=== PATIENT | female | born 1950 | race Caucasian/White ===

== ENCOUNTER → 2017-11-16 | Outpatient (CLI) | payer BC | END | disposition home or self-care (01) | LOC: MAMMO 08:20 | DX: Z12.31 Encounter for screening mammogram for malignant neoplasm of breast (principal) | CPT/HCPCS: G0202 ==

== ENCOUNTER 2018-05-27 18:05 | Inpatient (IN) | payer MEDICARE, BC ==
[2018-05-27] MEDS ORDERED: 0.9 % SODIUM CHLORIDE 10 ML DISP.SYRIN. IV (20:00)
[2018-05-27 21:03] LABS: BASE EXCESS ABG 3 mmol/L (-3-3); HCO3 ABG 27 mmol/L (21-28); PCO2 ABG 38 mmHg (35-46); PH ABG 7.46 (7.35-7.45); PO2 ABG 74 mmHg (65-108); SAT O2 ABG 95 % (92-99)
[2018-05-27 21:11] LABS: ADD MAN DIFF? NO
[2018-05-27 21:21] LABS: BASO % 1 % (0-3); EOS % 1 % (0-3); HEMATOCRIT 44.8 % (36.0-47.0); HEMOGLOBIN 14.9 g/dL (12.0-15.5); LYMPH # 1.7 x10^3/uL (1.0-4.8); LYMPH % 33 % (24-48); MEAN CORPUSCULAR HEMOGLOBIN 30 pg (25-35); MEAN CORPUSCULAR HGB CONC 33 g/dL (31-37); MEAN CORPUSCULAR VOLUME 89 fL (79-100); MONO # 0.3 x10^3/uL (0.0-1.1); MONO % 6 % (0-9); NEUT # 3.1 x10^3uL (1.8-7.7); NEUT % 60 % (31-73); PLATELET COUNT 194 x10^3/uL (140-400); RED BLOOD COUNT 5.04 x10^6/uL (3.50-5.40); RED CELL DISTRIBUTION WIDTH 13.4 % (11.5-14.5); WHITE BLOOD COUNT 5.2 x10^3/uL (4.0-11.0)
[2018-05-27] MEDS: ENOXAPARIN 40 MG/0.4 ML SYRINGE. SQ (21:33)
[2018-05-27] MEDS: methylPREDNISolone SOD SUCC PF 125 MG/2 ML VIAL. IV (21:33)
[2018-05-27] MEDS: PROMETH/CODEINE 6.25/10MG 5 ML SYRUP. PO (21:34)
[2018-05-27] MEDS: METOPROLOL TART IMMED RELEASE 50 MG TABLET. PO (21:34)
[2018-05-27] MEDS: AZITHROMYCIN 500 MG in IV NORMAL SALINE 250ML 250 ML IV (21:35)
[2018-05-27 21:38] LABS: TROPONINI < 0.017 ng/mL (0.000-0.055)
[2018-05-27 21:39] LABS: LACTIC ACID 1.7 mmol/L (0.4-2.0)
[2018-05-27 21:42] LABS: NT-PRO BNP 1058 pg/mL (0-124)
[2018-05-27 21:45] LABS: ALBUMIN 4.3 g/dL (3.4-5.0); ALBUMIN/GLOBULIN RATIO 1.1 (1.0-1.7); ALK PHOS 90 U/L (46-116); ALT (SGPT) 23 U/L (14-59); ANION GAP 6 (6-14); AST (SGOT) 17 U/L (15-37); BLOOD UREA NITROGEN 17 mg/dL (7-20); BUN/CREATININE RATIO 17 (6-20); CALCIUM 9.9 mg/dL (8.5-10.1); CARBON DIOXIDE 33 mmol/L (21-32); CHLORIDE 104 mmol/L (98-107); GFR 55.3; GLUCOSE 110 mg/dL (70-99); MAGNESIUM 2.1 mg/dL (1.8-2.4); SODIUM 143 mmol/L (136-145); TOTAL BILIRUBIN 0.4 mg/dL (0.2-1.0); TOTAL PROTEIN 8.3 g/dL (6.4-8.2)
[2018-05-27 21:49] LABS: POTASSIUM 2.9 mmol/L (3.5-5.1)
[2018-05-27 22:23] LABS: FIO2 ABG 21%
[2018-05-27] MEDS: POTASSIUM CHLORIDE 20 MEQ TABLET.ER. PO ×2 (22:42→23:56)
[2018-05-27] MEDS: FUROSEMIDE 20 MG/2 ML VIAL. IVP (22:43)
[2018-05-28] MEDS: methylPREDNISolone SOD SUCC PF 125 MG/2 ML VIAL. IV ×3 (05:07→21:58)
[2018-05-28 05:25] LABS: BASO % 0 % (0-3); EOS % 0 % (0-3); HEMATOCRIT 43.1 % (36.0-47.0); HEMOGLOBIN 14.5 g/dL (12.0-15.5); LYMPH # 0.6 x10^3/uL (1.0-4.8); LYMPH % 11 % (24-48); MEAN CORPUSCULAR HEMOGLOBIN 30 pg (25-35); MEAN CORPUSCULAR HGB CONC 34 g/dL (31-37); MEAN CORPUSCULAR VOLUME 88 fL (79-100); MONO % 1 % (0-9); NEUT # 4.7 x10^3uL (1.8-7.7); NEUT % 87 % (31-73); PLATELET COUNT 200 x10^3/uL (140-400); RED CELL DISTRIBUTION WIDTH 12.9 % (11.5-14.5); WHITE BLOOD COUNT 5.4 x10^3/uL (4.0-11.0)
[2018-05-28 05:45] LABS: ANION GAP 8 (6-14); BLOOD UREA NITROGEN 14 mg/dL (7-20); CALCIUM 9.6 mg/dL (8.5-10.1); CARBON DIOXIDE 32 mmol/L (21-32); CHLORIDE 105 mmol/L (98-107); CREATININE 0.9 mg/dL (0.6-1.0); GFR 62.5; GLUCOSE 150 mg/dL (70-99); POTASSIUM 4.2 mmol/L (3.5-5.1); SODIUM 145 mmol/L (136-145)
[2018-05-28 05:49] LABS: TROPONINI < 0.017 ng/mL (0.000-0.055)
[2018-05-28 07:05] LABS: ADD MAN DIFF? YES
[2018-05-28] MEDS: ALBUTEROL SULFATE 2.5 MG/3 ML NEBU. NEB ×4 (07:10→19:52)
[2018-05-28] MEDS: PROMETH/CODEINE 6.25/10MG 5 ML SYRUP. PO ×3 (08:38→20:40)
[2018-05-28] MEDS: hydroCHLOROthiazide 12.5 MG CAPSULE PO (08:39)
[2018-05-28] MEDS: LACTOBACILLUS RHAMNOSUS GG 1 CAPSULE. PO ×2 (08:39→20:40)
[2018-05-28] MEDS: POTASSIUM CHLORIDE 20 MEQ TABLET.ER. PO (08:39)
[2018-05-28] MEDS: METOPROLOL TART IMMED RELEASE 50 MG TABLET. PO (08:40)
[2018-05-28] MEDS: LISINOPRIL 20 MG TABLET PO (08:40)
[2018-05-28 11:54] LABS: % ATYL 1 % (0-0); % BANDS 1 % (0-9); % LYMPHS 19 % (24-48); % SEGS 79 % (35-66); PLT ESTIMATE ADEQUATE (ADEQUATE)
[2018-05-28 13:09] LABS: CHOLESTEROL 242 mg/dL (0-200); CHOLESTEROL/HDL RATIO 3.4; HDLC 72 mg/dL (40-60); LDLC 164 mg/dL (0-100); NON-HDL CHOLESTEROL 170 mg/dL (0-129); TRIGLYCERIDES 32 mg/dL (0-150); VLDLC 6 mg/dL (0-40)
[2018-05-28] MEDS: METOPROLOL TARTRATE 5 MG/5 ML VIAL. IVP (16:25)
[2018-05-28] MEDS: METOPROLOL TART IMMED RELEASE 25 MG TABLET. PO ×3 (16:30→23:26)
[2018-05-28] MEDS: ENOXAPARIN 40 MG/0.4 ML SYRINGE. SQ (20:40)
[2018-05-28] MEDS: ATORVASTATIN CALCIUM 40 MG TABLET. PO (21:58)
[2018-05-28] MEDS: AZITHROMYCIN 500 MG in IV NORMAL SALINE 250ML 250 ML IV (21:59)
[2018-05-29 04:17] LABS: HEMOGLOBIN A1C 5.7 % (4.8-5.6)
[2018-05-29 05:23] LABS: ANION GAP 9 (6-14); BLOOD UREA NITROGEN 21 mg/dL (7-20); CALCIUM 9.2 mg/dL (8.5-10.1); CARBON DIOXIDE 29 mmol/L (21-32); CHLORIDE 104 mmol/L (98-107); CHOLESTEROL 214 mg/dL (0-200); CREATININE 0.9 mg/dL (0.6-1.0); GFR 62.5; GLUCOSE 154 mg/dL (70-99); HDLC 64 mg/dL (40-60); LDLC 142 mg/dL (0-100); NON-HDL CHOLESTEROL 150 mg/dL (0-129); POTASSIUM 3.6 mmol/L (3.5-5.1); SODIUM 142 mmol/L (136-145); TRIGLYCERIDES 42 mg/dL (0-150); VLDLC 8 mg/dL (0-40)
[2018-05-29 05:25] LABS: CHOLESTEROL/HDL RATIO 3.3
[2018-05-29] MEDS: methylPREDNISolone SOD SUCC PF 125 MG/2 ML VIAL. IV ×2 (06:00→20:24)
[2018-05-29] MEDS: METOPROLOL TART IMMED RELEASE 25 MG TABLET. PO ×2 (06:52→12:02)
[2018-05-29] MEDS: ALBUTEROL SULFATE 2.5 MG/3 ML NEBU. NEB ×5 (07:27→20:27)
[2018-05-29] MEDS: LACTOBACILLUS RHAMNOSUS GG 1 CAPSULE. PO ×2 (08:52→20:24)
[2018-05-29] MEDS: hydroCHLOROthiazide 12.5 MG CAPSULE PO (08:53)
[2018-05-29] MEDS: LISINOPRIL 20 MG TABLET PO (08:53)
[2018-05-29] MEDS: ASPIRIN CHEWABLE 81 MG TABLET. PO (12:02)
[2018-05-29] MEDS ORDERED: LIDOCAINE 2% 20 ML VIAL. (13:54)
[2018-05-29] MEDS ORDERED: MIDAZOLAM HCL/PF 2 MG/2 ML VIAL. (14:10)
[2018-05-29] MEDS ORDERED: NITROGLYCERIN 200 MCG/2 ML SYRINGE FOR CATH/VASC LAB. (14:10)
[2018-05-29] MEDS ORDERED: fentaNYL PF VIAL 100 MCG/2 ML VIAL (14:10)
[2018-05-29] MEDS ORDERED: HEPARIN for IV BOLUS 10,000 UNIT/10 ML VIAL. (14:10)
[2018-05-29] MEDS ORDERED: VERAPAMIL 5 MG/2 ML VIAL. (14:10)
[2018-05-29] MEDS: IODIXANOL 320 MG/ML 100 ML VIAL. IART (14:45)
[2018-05-29] MEDS: LIDOCAINE 2% 20 ML VIAL. IJ (14:59)
[2018-05-29] MEDS ORDERED: CONTRAST GIVEN. MC (15:00)
[2018-05-29] MEDS: MIDAZOLAM HCL/PF 2 MG/2 ML VIAL. IV (15:00)
[2018-05-29] MEDS: fentaNYL PF VIAL 100 MCG/2 ML VIAL IV (15:01)
[2018-05-29] MEDS: METOPROLOL SUCC 24HR ER 100 MG TAB.ER.24H. PO (18:05)
[2018-05-29] MEDS: ENOXAPARIN 40 MG/0.4 ML SYRINGE. SQ (20:00)
[2018-05-29] MEDS: ATORVASTATIN CALCIUM 40 MG TABLET. PO (20:23)
[2018-05-29] MEDS: PROMETH/CODEINE 6.25/10MG 5 ML SYRUP. PO (20:24)
[2018-05-29] MEDS ORDERED: ATORVASTATIN CALCIUM 20 MG TABLET PO (21:00)
[2018-05-30] MEDS: ALBUTEROL SULFATE 2.5 MG/3 ML NEBU. NEB (08:37)
[2018-05-30] MEDS: ASPIRIN CHEWABLE 81 MG TABLET. PO (09:09)
[2018-05-30] MEDS: LACTOBACILLUS RHAMNOSUS GG 1 CAPSULE. PO (09:09)
[2018-05-30] MEDS: hydroCHLOROthiazide 12.5 MG CAPSULE PO (09:09)
[2018-05-30] MEDS: LISINOPRIL 20 MG TABLET PO (09:12)
[2018-05-30] MEDS: methylPREDNISolone SOD SUCC PF 125 MG/2 ML VIAL. IV (09:13)
[2018-05-30] MEDS: METOPROLOL SUCC 24HR ER 100 MG TAB.ER.24H. PO (09:13)
[2018-05-30] MEDS: PROMETH/CODEINE 6.25/10MG 5 ML SYRUP. PO (09:20)
[2018-05-30] MEDS ORDERED: ATORVASTATIN CALCIUM 20 MG TABLET PO (21:00)
== END 2018-05-30 11:58 | disposition home or self-care (01) | DRG 286 ==
LOC: 2 SOUTH 18:05
PROC: 4A023N8 Measurement of Cardiac Sampling and Pressure, Bilateral, Percutaneous Approach (ICD-10-PCS; principal; 2018-05-29)
PROC: B2111ZZ Fluoroscopy of Multiple Coronary Arteries using Low Osmolar Contrast (ICD-10-PCS; 2018-05-29)
PROC: B2151ZZ Fluoroscopy of Left Heart using Low Osmolar Contrast (ICD-10-PCS; 2018-05-29)
DX: I11.0 Hypertensive heart disease with heart failure (principal); J18.9 Pneumonia, unspecified organism; I35.0 Nonrheumatic aortic (valve) stenosis; I50.21 Acute systolic (congestive) heart failure; I42.9 Cardiomyopathy, unspecified; E78.5 Hyperlipidemia, unspecified; J20.9 Acute bronchitis, unspecified; E87.6 Hypokalemia; I35.1 Nonrheumatic aortic (valve) insufficiency; I27.20 Pulmonary hypertension, unspecified; Z79.899 Other long term (current) drug therapy; Z82.49 Family history of ischemic heart disease and other diseases of the circulatory system
CPT/HCPCS: 36415; 36600; 71046; 80048; 80053; 80061; 82805; 83036; 83605; 83735; 83880; 84443; 84484; 85007; 85025; 87040; 93005; 93306; 93458; 94060; 94640; 94729; 94760; 99152; 99153; C1769; C1892; J0456; J1644; J1650; J1956; J2001; J2250; J2930; J3010; J3490; J7050; J7613

== ENCOUNTER → 2018-07-29 | Day surgery (SDC) | payer MEDICARE ==
[~2018-07-29] MED LIST: ATOR20TA58 PO; IV RINGERS,LACTATED 1000ML 1,000 ML IV SCH; LIDOCAINE 1% PF 2 ML VIAL. ID PRN; LISI1TAB5 PO; METO-247 PO; METO25TA4 PO; MIDAZOLAM HCL/PF 2 MG/2 ML VIAL. IV PRN; PROM6.257 PO; PROPOFOL 20 ML IV ONE; fentaNYL PF VIAL 100 MCG/2 ML VIAL IV PRN
--- NOTE | 2018-07-29 10:33 | PDOC1 ---
HISTORY & PHYSICAL H&P David Finnegan 1950 07/08/2018 03:30 PM 11/18 Original [facility] [address] [place] [address]. [phone] Patient: David Finnegan Date of : 1950 Date: 07/08/2018 3:30 PM Visit Type: Consult This 67 year old female presents for Screening colonoscopy. History of Present Illness: 1. Screening colonoscopy No prior screening. Denies risk factors. Pertinent negatives include abdominal pain, change in bowel habits, change in stool caliber, constipation, decreased appetite, diarrhea, melena, nausea, rectal bleeding, vomiting, weight gain and weight loss. Additional information: No family history of colon cancer , No family history of Crohn's/colitis, No NSAID/ASA use and No prior colonoscopy. INTAKE COMMENTS: Intake Comments: patient states shes is here for a colonoscopy PROBLEM LIST: Problem Description Onset Date Chronic Clinical Status Notes Essential hypertension 04/17/2013 Y Mapped from [facility] Chronic Conditions table on 06/07/2014 by the ICD9 to SNOMED Bulk Mapping Utility. The mapped diagnosis code was HTN (hypertension), 401.9, added by Lina Tan, with responsible provider Lina Tan MD MD. Onset date 04/17/2013; last addressed on 2012. Hyperlipidemia 04/17/2013 Y Mapped from [facility] Chronic Conditions table on 2013 by the ICD9 to SNOMED Bulk Mapping Utility. The mapped diagnosis code was Hyperlipidemia, 272.4, added by Lina Tan, with responsible provider Lina Tan MD MD. Onset date 04/17/2013; last addressed on 04/17/2013. Medications (active prior to today) Medication Name Sig Description Start Date Stop Date Refilled Rx Elsewhere atorvastatin 20 mg tablet take 1 tablet by oral route every day 06/05/2018 N metoprolol succinate ER 100 mg tablet,extended release 24 hr take 1 tablet by oral route every day 06/05/2018 N LISINOPRIL/HCTZ 20-12.5MG TAB TAKE 1 TABLET BY MOUTH ONCE DAILY 06/30/2018 N hydralazine 25 mg tablet take 1 tablet by oral route 2 times every day with food 07/03/2018 N Medication Reconciliation Medications reconciled today. Medication Reviewed Adherence Medication Name Sig Desc Elsewhere Status taking as directed atorvastatin 20 mg tablet take 1 tablet by oral route every day N Verified taking as directed metoprolol succinate ER 100 mg tablet,extended release 24 hr take 1 tablet by oral route every day N Verified taking as directed LISINOPRIL/HCTZ 20-12.5MG TAB TAKE 1 TABLET BY MOUTH ONCE DAILY N Verified taking as directed hydralazine 25 mg tablet take 1 tablet by oral route 2 times every day with food N Verified Medications (Added, Continued or Stopped today) Start Date Medication Directions PRN Status PRN Reason Instruction Stop Date 06/05/2018 atorvastatin 20 mg tablet take 1 tablet by oral route every day N 07/03/2018 hydralazine 25 mg tablet take 1 tablet by oral route 2 times every day with food N 06/30/2018 LISINOPRIL/HCTZ 20-12.5MG TAB TAKE 1 TABLET BY MOUTH ONCE DAILY N 06/05/2018 metoprolol succinate ER 100 mg tablet,extended release 24 hr take 1 tablet by oral route every day N Allergies: Ingredient Reaction (Severity) Medication Name Comment NO KNOWN ALLERGIES ORDERS: Status Lab Order Time Frame Comments ordered CBC -today ordered CMP -today ordered Urinalysis -today ordered TSH -today ordered Lipid Panel -today obtained ordered CMP -today ordered CBC w/diff -today ordered Urinalysis -today ordered Lipid Panel -today ordered TSH -today ordered Hemoglobin A1c -today ordered Microalb/Creat Ratio, Randm Ur -today ordered CMP -today ordered CBC w/diff -today ordered Urinalysis -today ordered Lipid Panel -today ordered TSH -today ordered Hemoglobin A1c -today ordered CMP -today ordered CBC w/diff -today ordered Lipid Panel -today ordered TSH 3rd Generation -today ordered CMP -today ordered CBC w/diff -today ordered Urinalysis -today ordered Lipid Panel -today ordered TSH -today ordered Hemoglobin A1c -today ordered BONE MINERAL, DUAL PHOTON ordered MAMMOGRAM, SCREENING ordered CBC -today ordered CMP -today ordered Urinalysis -today ordered TSH -today ordered Lipid Panel -today ordered Hemoglobin A1c -today ordered CBC -today ordered CMP -today ordered Urinalysis -today ordered TSH -today ordered Lipid Panel -today ordered Hemoglobin A1c -today ordered Microalb/Creat Ratio, Randm Ur -today scheduled DOPPLER ECHO EXAM, HEART ordered Colonoscopy, flexible; diagnostic -today ordered follow-up visit with Odilon Zaragoza MD System Neg/Pos Details Constitutional Negative Chills, Fever, Malaise, Weight gain and Weight loss. ENMT Negative Sore throat. Eyes Negative Double vision. Respiratory Negative Dyspnea and Wheezing. Cardio Negative Chest pain and Irregular heartbeat/palpitations. GI Positive See HPI. GI Negative Abdominal pain, Change in bowel habits, Change in stool caliber, Constipation, Decreased appetite, Diarrhea, Melena, Nausea, See HPI, Rectal bleeding and Vomiting. Negative Dysuria and Hematuria. Endocrine Negative Cold intolerance and Heat intolerance. Psych Negative Anxiety. Integumentary Negative Hives and Rash. MS Negative Joint pain. Mateusz/Lymph Negative Easy bleeding and Easy bruising. Allergic/Immuno Negative Food allergies. Reproductive Positive The patient is post-menopausal. Vital Signs Time BP mm/Hg Pulse /min Resp /min Temp F Ht ft Ht in Ht cm Wt lb Wt kg BMI kg/ m2 BSA m2 O2 Sat% 3:27 PM 122/78 84 14 98.1 5.0 5.00 165.10 170.20 77.201 28.32 1.88 96 Measured By Time Measured by 3:27 PM Gay Swygert PHYSICAL EXAM: Exam Findings Details Constitutional Normal Well developed. Eyes Normal Conjunctiva - Right: Normal, Left: Normal. Sclera - Right: Normal, Left: Normal. Nasopharynx Normal Lips/teeth/gums - Normal. Neck Exam Normal Inspection - Normal. Thyroid gland - Normal. Respiratory Normal Inspection - Normal. Auscultation - Normal. Cardiovascular Normal Regular rate and rhythm. No murmurs, gallops, or rubs. Abdomen Normal Inspection - Normal. Anterior palpation - No guarding. No abdominal tenderness. No hepatic enlargement. No spleen enlargement. No hernia. No Ascites. Skin Normal Inspection - Normal. Extremity Normal No edema. Psychiatric Normal Orientation - Oriented to time, place, person & situation. Appropriate mood and affect. Assessment/Plan # Detail Type Description 1. Assessment Encounter for screening colonoscopy (Z12.11). Patient Plan schedule colonoscopy at Provider Plan Following items have been discussed with the patient if applicable. _x__Patient was advised about the liquid diet carefully. ___Diabetic medication: Do not take following medication on the preparation day - ___Insulin: Reduce or eliminate your insulin as follows- ___Blood thinner: Do not take following blood thinner as follows- _x__Other medication: Continue all other medication on the day of preparation. __x_BP medication: Take following BP meds on the day of the procedure at 5:30 AM. with just a sip of water-but do not drink lot of water because this will delay your procedure for anesthesia related issue.- Lisinopril, hydralazine, and metoprolol. Plan Orders Further diagnostic evaluations ordered today include(s) Colonoscopy , flexible; diagnostic to be performed today. She is to schedule a follow-up visit with Odilon Zaragoza MD. Co-Sign Orders Order Ordering Provider Cosigned Name Cosigned Date Cosigner Comments Colonoscopy, flexible; diagnostic Odilon Zaragoza 07/08/2018 follow-up visit with Odilon Zaragoza 07/08/2018 Active Patient Care Team Members Name Contact Agency Type Support Role Relationship Active Date Inactive Date Specialty Lina Tan MD Patient provider PCP Internal Med Provider: Odilon Zaragoza MD 07/08/2018 3:50 PM Karina Bernal MD, Family Practice; Wale Danielson MD Internal Medicine; Lina Tan MD, Internal Medicine; Becky Zaragoza MD Internal Medicine; Odilon Zaragoza MD, Gastroenterology; Mikhail Godoy MD, Rheumatology, J. Dima PRIETO ------ 07/29/18 Patient seen and examined. No change in H&P. ODILON ZARAGOZA MD Jul 29, 2018 10:33
[2018-07-29 12:21] VITALS: BP 160/93
--- NOTE | 2018-07-30 14:09 | PATHOLOGY ---
[facility] Accession Number: [id number] . 01 Material submitted: . CECAL POLYP . 01 Clinical history: . Screening . 02 Diagnosis: Colon biopsies, cecal polyp: - Tubular adenoma (M:vjm;07/30/2018) AGA/07/30/2018 . 02 Comment: There is no high grade dysplasia or evidence of malignancy. (JPM:vjm;07/30/2018) . 02 Electronically signed: . Tre Adams MD, Pathologist NPI- [id number] . 01 Gross description: . Received in formalin labeled "Kain, Glourious, cecal polyp," are multiple segments of johnson soft tissue measuring 1.9 x 0.3 x 0.2 cm in aggregate dimensions. The specimen is filtered and submitted entirely in cassette A1. (TSD; 07/29/2018) TOB/TOB . 02 Pathologist provided ICD-10: D12.0 . 02 CPT . 264157 Specimen Comment: A courtesy copy of this report has been sent to Specimen Comment: [phone]. Specimen Comment: Report sent to / DR DURANT [facility]formed at: 01 [facility] [address], [place] [id number] MD Fran Yost MD Phone: [phone] Performed at: 02 [facility] [address] [place], [place] [id number] MD Tre Adams MD Phone: [phone]
== END | disposition home or self-care (01) ==
LOC: SURG 10:04
PROVIDERS: ATTEND Internal Medicine Gastroenterology
DX: Z12.11 Encounter for screening for malignant neoplasm of colon (principal); D12.0 Benign neoplasm of cecum; I10 Essential (primary) hypertension; E78.5 Hyperlipidemia, unspecified; Z79.899 Other long term (current) drug therapy
CPT/HCPCS: 45385; 88305; J2704; 45380

== ENCOUNTER → 2018-11-19 | Outpatient (CLI) | payer OTHER ==
[2018-07-29 12:21] VITALS: BP 160/93
[~2018-11-19] MED LIST changes: -IV RINGERS,LACTATED 1000ML 1,000 ML IV SCH; -LIDOCAINE 1% PF 2 ML VIAL. ID PRN; -MIDAZOLAM HCL/PF 2 MG/2 ML VIAL. IV PRN; -PROPOFOL 20 ML IV ONE; -fentaNYL PF VIAL 100 MCG/2 ML VIAL IV PRN
--- NOTE | 2018-11-24 09:24 | RAD ---
DATE: 11/19/2018 10:00 AM EXAM: DIGITAL SCREEN BILAT W/CAD HISTORY: routine screening evaluation. COMPARISON: Prior mammographic imaging dating back to 11/16/2014 Bilateral full field craniocaudal and mediolateral oblique images were obtained using digital technique. This study was interpreted with the benefit of Computerized Aided Detection (CAD ). Breast Density: The breast parenchyma is heterogeneously dense, which could reduce sensitivity of mammography. Breast parenchyma level C. FINDINGS: The parenchymal pattern appears stable. Benign calcifications are present. No suspicious masses, microcalcifications or architectural distortion is present to suggest malignancy in either breast. The visualized axillae are unremarkable. IMPRESSION: No mammographic evidence of malignancy. BI-RADS CATEGORY: 2 BENIGN FINDING(S) RECOMMENDED FOLLOW-UP: 12M 12 MONTH FOLLOW-UP Annual screening mammography is recommended, unless clinically indicated sooner based on symptoms or change in physical exam. PQRS compliance statement: Patient information was entered into a reminder system with a target due date 11/19/2019 for the next mammogram. Mammography is a sensitive method for finding small breast cancers, but it does not detect them all and is not a substitute for careful clinical examination. A negative mammogram does not negate a clinically suspicious finding and should not result in delay in biopsying a clinically suspicious abnormality. "Our facility is accredited by the [employer] Mammography Program." CHANCED
== END | disposition home or self-care (01) ==
LOC: MAMMO 07:48
PROVIDERS: ATTEND Internal Medicine
DX: Z12.31 Encounter for screening mammogram for malignant neoplasm of breast (principal)
CPT/HCPCS: 77067

== ENCOUNTER → 2019-10-21 | Outpatient (CLI) | payer MEDICARE ==
[2019-05-15 11:00] VITALS: BP 135/81
[~2019-10-21] MED LIST changes: +APIX5TAB PO; +GARL100T PO; +LISI1TAB19 PO; -LISI1TAB5 PO; +MULT1TAB52 PO; +ZOLP5TAB PO
--- NOTE | 2019-10-21 11:13 | CARD ---
MR#: [id number] Date of Study: 10/21/2019 Ordering Physician: NADEEM FERNANDES, Referring Physician: NADEEM FERNANDES, Tech: Liz Villalobos RAMU APPROVED REPORT EXAM: Two-dimensional and M-mode echocardiogram with Doppler and color Doppler. Other Information Quality : Good Rhythm : Multifocal PVC's INDICATION Arrhythmia 2D DIMENSIONS RVDd3.5 (2.9-3.5cm)Left Atrium(2D)2.9 (1.6-4.0cm) IVSd0.9 (0.7-1.1cm)Aortic Root(2D)3.0 (2.0-3.7cm) LVDd4.6 (3.9-5.9cm)LVOT Diameter2.0 (1.8-2.4cm) PWd1.2 (0.7-1.1cm)LVDs3.2 (2.5-4.0cm) FS (%) 29.1 %SV53.9 ml LVEF(%)55.9 (>50%) Aortic Valve AoV Peak Roshan.178.8cm/sAoV VTI31.7cm AO Peak GR.12.8mmHgLVOT Peak Roshan.103.0cm/s AO Mean GR.6mmHgAVA (VMAX)1.87cm2 NATHANAEL (VTI)2.00cm2 Mitral Valve MV E Dbizhoel26.9cm/sMV DECEL ZLMU77fq MV A Nsnjqbnk46.4cm/sE/A Ratio1.1 Tricuspid Valve TR P. Mnktvsnh513oq/sRAP DCHOMZUP1zqHr TR Peak Gr.19toUsDEWI32mjPc Pulmonary Vein S1 Vqjswpir80.4cm/sD2 Jeyzwhwj26.3cm/s LEFT VENTRICLE The left ventricle is normal size. There is mild concentric left ventricular hypertrophy. The left ve ntricular systolic function is normal. The Ejection Fraction is 55%. There is normal LV segmental wal l motion. Transmitral Doppler flow pattern is Grade II-pseudonormal filling dynamics. RIGHT VENTRICLE The right ventricle is mildly dilated. The right ventricular systolic function is normal. ATRIA The left atrium is moderately dilated. The right atrium is moderately dilated. The interatrial septum is intact with no evidence for an atrial septal defect or patent foramen ovale as noted on 2-D or Do ppler imaging. AORTIC VALVE The aortic valve is calcified but opens well. Doppler and Color Flow revealed trace aortic regurgitat ion. There is no significant aortic valvular stenosis. MITRAL VALVE The mitral valve is thickened but opens well. Mitral valve is redundant but no mitral valve prolapse. There is no mitral valve stenosis. Doppler and Color-flow revealed mild to moderate mitral regurgita tion. TRICUSPID VALVE The tricuspid valve is not functioning normally. Doppler and Color Flow revealed moderate to severe t ricuspid regurgitation. There is moderate pulmonary hypertension. The PA pressure was estimated at 54 mmHg. 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 There is no tricuspid valve stenosis. PULMONIC VALVE The pulmonary valve is normal in structure and function. Doppler and Color Flow revealed mild pulmoni c valvular regurgitation. There is no pulmonic valvular stenosis. GREAT VESSELS The aortic root is normal in size. The ascending aorta is normal in size. The IVC is normal in size a nd collapses >50% with inspiration. PERICARDIAL EFFUSION There is no evidence of significant pericardial effusion. Critical Notification Critical Value: No <Conclusion> The left ventricular systolic function is normal. The Ejection Fraction is 55%. There is normal LV segmental wall motion. The left atrium is moderately dilated. Mild to moderate mitral regurgitation. 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 Moderate to severe tricuspid regurgitation. There is moderate pulmonary hypertension. The PA pressure was estimated at 54 mmHg. There is no evidence of significant pericardial effusion. Signed by : Philip Araya, Electronically Approved : 10/21/2019 11:13:38
== END | disposition home or self-care (01) ==
LOC: ECHO 09:53
PROVIDERS: ATTEND Internal Medicine Cardiovascular Disease
DX: I08.8 Other rheumatic multiple valve diseases (principal); I49.3 Ventricular premature depolarization
CPT/HCPCS: 93306

== ENCOUNTER → 2019-11-23 | Outpatient (CLI) | payer MEDICARE, OTHER ==
[2019-05-15 11:00] VITALS: BP 135/81
--- NOTE | 2019-11-23 17:36 | RAD ---
DATE: 11/23/2019 EXAM: MAMMO MIROSLAVA SCREENING BILATERAL HISTORY: Routine screening COMPARISON: 11/19/2018, 10/20/2017, 11/06/2016 10/31/2015 mammographic exams This study was interpreted with the benefit of Computerized Aided Detection (CAD). Breast Density: DENSE The breast parenchyma is dense, which could reduce the sensitivity of mammography. Breast parenchyma level density D. FINDINGS: Benign calcifications are present. No suspicious calcifications, masses, or distortion. IMPRESSION: Stable BI-RADS CATEGORY: 1 NEGATIVE RECOMMENDED FOLLOW-UP: 12M 12 MONTH FOLLOW-UP PQRS compliance statement: Patient information was entered into a reminder system with a target due date for the next mammogram. Mammography is a sensitive method for finding small breast cancers, but it does not detect them all and is not a substitute for careful clinical examination. A negative mammogram does not negate a clinically suspicious finding and should not result in delay in biopsying a clinically suspicious abnormality. "Our facility is accredited by the [employer] Mammography Program."
== END | disposition home or self-care (01) ==
LOC: MAMMO 10:20
PROVIDERS: ATTEND Internal Medicine
DX: Z12.31 Encounter for screening mammogram for malignant neoplasm of breast (principal); N64.89 Other specified disorders of breast
CPT/HCPCS: 77063; 77067

== ENCOUNTER → 2020-11-30 | Outpatient (CLI) | payer MEDICARE ==
[2019-05-15 11:00] VITALS: BP 135/81
[~2020-11-30] MED LIST changes: +HYDR-2869 PO; +IOHEXOL 240 MG/ML 50ML VIAL. PO ONE; +IOHEXOL 300 MG/ML 100ML VIAL. IV ONE; -LISI1TAB19 PO; +LISI1TAB37 PO; +MELA3TAB43 PO; +MULT-445 PO; -MULT1TAB52 PO
--- NOTE | 2020-12-01 08:59 | KCIC ---
PQRS Compliance Statement: One or more of the following individualized dose reduction techniques were utilized for this examinat ion: 1. Automated exposure control 2. Adjustment of the mA and/or kV according to patient size 3. Use of iterative reconstruction technique CT ABDOMEN+PELVIS W Clinical Indication: Reason: Rt sided abdominal pain, stomach pain, gross hematuria 4 days. History: CHF, pt on blood thinners. Comparison: None. Technique: Helical CT imaging of the abdomen and pelvis is performed after 89 cc of Omnipaque 300 IV contrast. Oral contrast also administered. Findings: There is marked cardiomegaly. There is no pericardial effusion. There is no pleural effusion. There i s mild discoid atelectasis or scarring in the lung bases. Hyperdensity in the gallbladder lumen could be gallbladder sludge. The liver, spleen, pancreas, adren al glands, and abdominal aorta are normal. Kidneys enhance symmetrically. Contrast is already identif ied in the upper collecting system. There is no hydronephrosis. The stomach is unremarkable. There is no small bowel obstruction. The appendix is normal. There is no colon wall thickening. No abdominal adenopathy or free fluid. There is a probable posterior uterine fibroid measuring on the order of 3.7 cm. The urinary bladder i s normal. There is no pelvic free fluid. The ovaries are symmetric. There is mild grade 1 anterolisthesis of L2 on L3 and L4 and L5. There is disc space narrowing and va cuum disc phenomenon of L5/S1. There is advanced arthropathy of the hips, worse on the right. IMPRESSION: 1. There is no acute abdominal or pelvic abnormality. 2. Myomatous uterus. 3. Marked cardiomegaly. Electronically signed by: Tank Mir MD (12/01/2020 8:57 AM) [id number]
== END ==
LOC: KCIC CT 13:00
PROVIDERS: ATTEND Internal Medicine
DX: D25.9 Leiomyoma of uterus, unspecified (principal); I51.7 Cardiomegaly
CPT/HCPCS: 74177; 82565; Q9966; Q9967

== ENCOUNTER → 2020-12-02 | Outpatient (CLI) | payer MEDICARE ==
[2019-05-15 11:00] VITALS: BP 135/81
[~2020-12-02] MED LIST changes: -IOHEXOL 240 MG/ML 50ML VIAL. PO ONE; -IOHEXOL 300 MG/ML 100ML VIAL. IV ONE
== END ==
LOC: LAB 11:55
PROVIDERS: ATTEND Obstetrics & Gynecology
DX: Z01.812 Encounter for preprocedural laboratory examination (principal); N95.0 Postmenopausal bleeding; Z20.828 Contact with and (suspected) exposure to other viral communicable diseases
CPT/HCPCS: U0003

== ENCOUNTER 2020-12-07 11:01 | Day surgery (SDC) | payer MEDICARE ==
[~2020-12-07] VITALS: Ht 171.4 cm; Wt 71.2 kg
--- NOTE | 2020-12-07 10:20 | HP ---
ADMIT DATE: 12/07/2020 CHIEF COMPLAINT AND HISTORY OF PRESENT ILLNESS: This patient is a 70-year-old -[place] female who is a 2, para 2. Her last delivery was 49 years ago and she has had menopause. She is a patient of Dr. Tan, complaining of vaginal bleeding at this time for the last 5 days and a history of atrial fibrillation. She is on Eliquis, also medications for high blood pressure as well as metformin, hydrochlorothiazide and also fibroid uterus. PHYSICAL EXAMINATION: VITAL SIGNS: Being stable at this time. She weighs 150 pounds. ABDOMEN: Soft. PELVIC: Shows external genitalia being normal. There is no vaginal bleeding at the time of the examination. On bimanual exam, no adnexal masses are felt, but the uterus is quite firm and bulky, enlarged. EXTREMITIES: No edema of feet. IMPRESSION: Postmenopausal bleeding, hypertension, diabetes and atrial fibrillation. PLAN: Diagnostic D and C. YOLETTE CLARKE MD DR: VIDA/jr JOB#: [id number] / [id number]
[~2020-12-07 11:01] MED LIST changes: +DEXAMETHASONE SOD PHOS 4 MG/ML VIAL ONE; +HYDROmorphone 2 MG/ML VIAL IVP PRN; +IV RINGERS,LACTATED 1000ML 1,000 ML IV SCH; +LIDOCAINE 2% PF 5 ML VIAL. ONE; +MORPHINE SULFATE 2 MG/ML VIAL. IVP PRN; +ONDANSETRON PF 4 MG/2 ML VIAL. ONE; +PROCHLORPERAZINE 10 MG/2 ML VIAL. IVP PRN; +PROPOFOL 10 MG/ML (20ML) VIAL. IV ONE; +ceFAZolin SODIUM IV Push 1 GM VIAL. IVP PRN; +fentaNYL PF VIAL 100 MCG/2 ML VIAL IVP PRN; +fentaNYL PF VIAL 100 MCG/2 ML VIAL ONE
[2020-12-07 11:55] LABS: BASO % 1 % (0-3); EOS % 0 % (0-3); HEMOGLOBIN 14.1 g/dL (12.0-15.5); LYMPH # 1.4 x10^3/uL (1.0-4.8); LYMPH % 25 % (24-48); MEAN CORPUSCULAR HEMOGLOBIN 30 pg (25-35); MEAN CORPUSCULAR HGB CONC 33 g/dL (31-37); MEAN CORPUSCULAR VOLUME 90 fL (79-100); MONO # 0.3 x10^3/uL (0.0-1.1); MONO % 6 % (0-9); NEUT # 3.8 x10^3/uL (1.8-7.7); NEUT % 68 % (31-73); PLATELET COUNT 195 x10^3/uL (140-400); RED BLOOD COUNT 4.77 x10^6/uL (3.50-5.40); RED CELL DISTRIBUTION WIDTH 13.2 % (11.5-14.5); WHITE BLOOD COUNT 5.6 x10^3/uL (4.0-11.0)
[2020-12-07] MEDS ORDERED: OXYTOCIN 10 UNIT/ML VIAL. ONE (12:47)
[2020-12-07] MEDS ORDERED: miSOPROStol 200 MCG TABLET. ONE (12:47)
[2020-12-07] MEDS ORDERED: SEVOFLURANE 16 TO 30 MINUTES. IH ONE (13:41)
[2020-12-07] MEDS ORDERED: METOPROLOL IV PUSH 5 MG/5 ML VIAL. IVP ONE ×2 (14:25→14:45)
[2020-12-07] MEDS ORDERED: hydrALAZINE 20 MG/ML VIAL. ONE (14:53)
[2020-12-07] MEDS: hydrALAZINE 20 MG/ML VIAL. IVP PRN ×2 (14:59→15:11)
[2020-12-07 15:20] VITALS: BP 165/95
--- NOTE | 2020-12-07 17:38 | OP ---
DATE OF SURGERY: 12/07/2020 PREOPERATIVE DIAGNOSIS: Postmenopausal bleeding. POSTOPERATIVE DIAGNOSIS: Postmenopausal bleeding. OPERATION PERFORMED: Diagnostic dilation and curettage. DESCRIPTION OF PROCEDURE: The patient was taken to the operating room under general anesthesia. She was placed in the dorsal lithotomy position. Perineum was prepped and draped in the usual manner. Weighted speculum was inserted in posterior vaginal wall. Anterior lip of the cervix held with a tenaculum. Uterine sound is used to measure the length of the uterine cavity, which appears normal. Uterus is bulky because of the fibroids. Medium-sized curette is used to curette the endometrial cavity. All the curettings obtained are subjected for pathological examination. At the end of the curettage, speculum tenaculum is removed. The patient was sent to the recovery room in good condition. No complications encountered at time of the procedure. Estimated blood loss about 5 mL. YOLETTE CLARKE MD DR: VIDA/jr JOB#: [id number] / [id number]
--- NOTE | 2020-12-13 09:13 | PATHOLOGY ---
[facility] Accession Number: [id number] . 01 Material submitted: . endometrium - ENDOMETRIAL CURETTINGS . 01 Clinical history: . D/C . 02 Diagnosis: Endometrial curettings: - Insufficient endometrial tissue for diagnosis. See comment. (JPM:[facility] 12/12/2020) [facility] 12/12/2020 1702 Local . 02 Comment: Sections of the endometrial curettings reveal mucin containing a few segments of squamous and endocervical mucosa and few minute strips of endocervical epithelium and atrophic endometrial surface epithelium. The findings could be compatible with an atrophic endometrium. There is no atypia or evidence of malignancy. (JPM:[facility] 12/12/2020) . 02 Electronically signed: . Tre Adams MD, Pathologist NPI- [id number] . 01 Gross description: . Received in formalin labeled "Kain, Glorious, endometrial curettings" is a 2.9 x 1.6 x 0.6 cm aggregate of red-brown friable soft tissue fragments. The specimen is submitted entirely in A1. ([facility]; 12/09/2020) GZA/GZA 12/09/2020 1137 Local . 02 Pathologist provided ICD-10: N95.0 . 02 CPT . 772499 Specimen Comment: A courtesy copy of this report has been sent to [phone] Specimen Comment: [id number] Specimen Comment: Report sent to / DR DURANT Performed at: 01 [facility] [address], [place], [place] [id number] MD Rubén Collins MD Phone: [phone] Performed at: 02 [facility] [place] [address] [place], [place] [id number] MD Tre Adams MD Phone: [phone]
== END 2020-12-07 16:00 | disposition home or self-care (01) ==
LOC: SURG 11:01
PROVIDERS: ATTEND Obstetrics & Gynecology
DX: N95.0 Postmenopausal bleeding (principal); I10 Essential (primary) hypertension; I48.91 Unspecified atrial fibrillation; E78.00 Pure hypercholesterolemia, unspecified; Z79.899 Other long term (current) drug therapy; Z98.890 Other specified postprocedural states; Z72.89 Other problems related to lifestyle; Z82.49 Family history of ischemic heart disease and other diseases of the circulatory system; Z83.3 Family history of diabetes mellitus
CPT/HCPCS: 36415; 58120; 85025; J0360; J0690; J1100; J2405; J2704; J3010; J3490; 88305; J2590

== ENCOUNTER → 2021-01-18 | Outpatient (CLI) | payer MEDICARE ==
[~2021-01-18] MED LIST changes: -DEXAMETHASONE SOD PHOS 4 MG/ML VIAL ONE; -HYDROmorphone 2 MG/ML VIAL IVP PRN; -IV RINGERS,LACTATED 1000ML 1,000 ML IV SCH; -LIDOCAINE 2% PF 5 ML VIAL. ONE; -MORPHINE SULFATE 2 MG/ML VIAL. IVP PRN; -ONDANSETRON PF 4 MG/2 ML VIAL. ONE; -PROCHLORPERAZINE 10 MG/2 ML VIAL. IVP PRN; -PROPOFOL 10 MG/ML (20ML) VIAL. IV ONE; -ceFAZolin SODIUM IV Push 1 GM VIAL. IVP PRN; -fentaNYL PF VIAL 100 MCG/2 ML VIAL IVP PRN; -fentaNYL PF VIAL 100 MCG/2 ML VIAL ONE
--- NOTE | 2021-01-18 16:25 | KCIC ---
Bilateral digital screening mammograms with 3-D tomosynthesis: Reason for examination: Routine screening. Comparison is made to previous studies dated back to 11/06/2016. Bilateral mammograms in CC and oblique projections were obtained with 2-D imaging and 3-D tomosynthes is imaging on a Siemens Inspiration unit and reviewed on the workstation. Interpretation was made wit h the benefit of CAD. The skin and nipples show no abnormalities. No abnormal axillary lymph nodes are seen. The breast par enchyma is extremely dense. (Breast density: Category D.) There continues to be a small nodular paren chymal density in the left breast seen best on oblique view but probably at the 12:00 B position whic h is stable. There are no new dominant masses, suspicious calcifications or architectural distortion. Benign calcifications are present. Impression: No evidence of malignancy. Recommend routine screening. Your patient's mammogram demonstrates that she has dense breast tissue (breast density category C or D), which could hide abnormalities, and if she has other risk factors for breast cancer that have bee n identified, she might benefit from supplemental screening tests that may be suggested by you as her ordering physician. Dense breast tissue, in and of itself, is a relatively common condition. Therefo re, this information is not provided to cause undue concern, but rather to raise your awareness and t o promote discussion with your patient regarding the presence of other risk factors, in addition to d ense breast tissue. Your patient's mammography results will be sent to her. BI-RAD Category 2: Benign. "Our facility is accredited by the [employer] Mammography Program." This patient's information has been entered into a reminder system for the patient to be notified wit h the results of her examination and a target date for the next mammogram. Electronically signed by: Laurie Levi MD (01/18/2021 4:23 PM) [id number]
== END ==
LOC: KCIC MAMMO 10:40
PROVIDERS: ATTEND Internal Medicine
DX: Z12.31 Encounter for screening mammogram for malignant neoplasm of breast (principal)
CPT/HCPCS: 77063; 77067